=== PATIENT | female | born 1955 | race Caucasian/White ===

== ENCOUNTER → 2020-12-28 | Emergency (ER) | payer MEDICAID ==
[~2020-12-28] VITALS: Ht 160 cm; Wt 59.1 kg
[~2020-12-28] MED LIST: DICL100G15 TOP
[2020-12-28 08:47] VITALS: BP 156/77
== END | disposition home or self-care (01) ==
LOC: ER 08:42
DX: S60.222A Contusion of left hand, initial encounter (principal); Z91.09 Other allergy status, other than to drugs and biological substances; Z88.5 Allergy status to narcotic agent; Z79.899 Other long term (current) drug therapy; W22.8XXA Striking against or struck by other objects, initial encounter; Y93.89 Activity, other specified; Y92.89 Other specified places as the place of occurrence of the external cause; Y99.8 Other external cause status
CPT/HCPCS: 29125; 73130; 99283

== ENCOUNTER 2021-10-24 09:18 | Emergency (ER) | payer MEDICAID | END 2021-10-24 11:34 | disposition left against medical advice (07) | LOC: ER 09:18 | DX: M25.519 Pain in unspecified shoulder (principal); Z53.21 Procedure and treatment not carried out due to patient leaving prior to being seen by health care provider ==